=== PATIENT | female | born 1930 | race Caucasian/White ===

== ENCOUNTER → 2016-07-22 | Outpatient (CLI) | payer MEDICARE, OTHER ==
[2015-10-01 10:33] VITALS: BP 118/78
[~2016-07-22] MED LIST: ASPI81TA2 PO; BISA10SU2 RC; BUSP10TA PO; BUSP5TAB PO; CALC1TAB75 PO; CARB25DR OP; CLON0.5T PO; CLON0.5T20 PO; CLON1TAB3 PO; DOCU100T5 PO; DONE10TA34 PO; GLUC1CAP48 PO; GLYC1SUP23 RC; GUAI600T38 PO; HYDR12.58 PO; LEVO112T2 PO; LISI-334 PO; LISI40TA PO; LORA0.5T96 PO; LOVA10TA PO; MELA3TAB PO; MULT-121 PO; OXYB5TAB7 PO; POLY17PO5 PO; PRAM28CR2 TP; SERT50TA PO; TRAZ50TA15 PO; VERA180C2 PO; VERA240C2 PO
[2016-07-22 10:09] LABS: ALBUMIN 3.1 g/dL (3.4-5.0); ALBUMIN/GLOBULIN RATIO 0.9 (1.0-1.7); CALCIUM 8.8 mg/dL (8.5-10.1); CREATININE 1.2 mg/dL (0.6-1.0); GFR 42.6; POTASSIUM 4.1 mmol/L (3.5-5.1); TOTAL BILIRUBIN 0.6 mg/dL (0.2-1.0); TOTAL PROTEIN 6.6 g/dL (6.4-8.2)
== END | disposition home or self-care (01) ==
LOC: SPEC 09:38
PROVIDERS: ATTEND Family Medicine
DX: I10 Essential (primary) hypertension (principal); E87.0 Hyperosmolality and hypernatremia
CPT/HCPCS: 36415; 80053

== ENCOUNTER → 2016-09-18 | Outpatient (CLI) | payer MEDICARE, OTHER ==
[2015-10-01 10:33] VITALS: BP 118/78
[~2016-09-18] MED LIST changes: +ASPI-630 PO; -ASPI81TA2 PO; -DONE10TA34 PO; +DONE10TA61 PO; -GUAI600T38 PO; +GUAI600T47 PO; -MELA3TAB PO; +MELA3TAB2 PO
--- NOTE | 2016-09-18 14:57 | RAD ---
DATE: 09/18/2016 EXAM: DIGITAL SCREEN BILAT W/CAD HISTORY: Screening COMPARISON: One year earlier This study was interpreted with the benefit of Computerized Aided Detection (CAD). FINDINGS: Breast Density: SCATTERED The breast parenchyma shows scattered fibroglandular densities. Breast parenchyma level B. There has not been a significant change in the appearance of the breasts compared to the previous exam. Benign-appearing calcifications are noted in both breasts. IMPRESSION: Benign finding BI-RADS CATEGORY: 2 BENIGN FINDING(S) RECOMMENDED FOLLOW-UP: 12M 12 MONTH FOLLOW-UP PQRS compliance statement: Patient information was entered into a reminder system with a target due date 09/18/2017 for the next mammogram. Mammography is a sensitive method for finding small breast cancers, but it does not detect them all and is not a substitute for careful clinical examination. A negative mammogram does not negate a clinically suspicious finding and should not result in delay in biopsying a clinically suspicious abnormality. "Our facility is accredited by the [employer] Mammography Program."
== END | disposition home or self-care (01) ==
LOC: MAMMO 13:09
PROVIDERS: ATTEND Family Medicine
DX: Z12.31 Encounter for screening mammogram for malignant neoplasm of breast (principal)
CPT/HCPCS: G0202; 77067

== ENCOUNTER → 2016-10-22 | Outpatient (CLI) | payer MEDICARE, OTHER ==
[2015-10-01 10:33] VITALS: BP 118/78
[2016-10-22 11:00] LABS: ALBUMIN/GLOBULIN RATIO 0.9 (1.0-1.7); CALCIUM 8.5 mg/dL (8.5-10.1); CREATININE 1.1 mg/dL (0.6-1.0); POTASSIUM 4.1 mmol/L (3.5-5.1); TOTAL BILIRUBIN 0.3 mg/dL (0.2-1.0); TOTAL PROTEIN 6.3 g/dL (6.4-8.2)
== END | disposition home or self-care (01) ==
LOC: SPEC 10:27
PROVIDERS: ATTEND Family Medicine
DX: I10 Essential (primary) hypertension (principal); E87.0 Hyperosmolality and hypernatremia
CPT/HCPCS: 36415; 80053

== ENCOUNTER → 2016-11-23 | Outpatient (CLI) | payer MEDICARE, OTHER ==
[2015-10-01 10:33] VITALS: BP 118/78
== END | disposition home or self-care (01) ==
LOC: SPEC 14:55
PROVIDERS: ATTEND Family Medicine
DX: E03.9 Hypothyroidism, unspecified (principal)
CPT/HCPCS: 84443

== ENCOUNTER → 2016-11-25 | Outpatient (CLI) | payer MEDICARE, OTHER ==
[2015-10-01 10:33] VITALS: BP 118/78
== END | disposition home or self-care (01) ==
LOC: SPEC 07:44
PROVIDERS: ATTEND Family Medicine
DX: E78.00 Pure hypercholesterolemia, unspecified (principal)
CPT/HCPCS: 80061

== ENCOUNTER → 2016-12-29 | Outpatient (CLI) | payer MEDICARE, OTHER ==
[2015-10-01 10:33] VITALS: BP 118/78
[2016-12-29 12:26] LABS: ALBUMIN/GLOBULIN RATIO 0.9 (1.0-1.7); CALCIUM 8.7 mg/dL (8.5-10.1); CREATININE 1.6 mg/dL (0.6-1.0); GFR 30.5; POTASSIUM 4.2 mmol/L (3.5-5.1); TOTAL BILIRUBIN 0.4 mg/dL (0.2-1.0); TOTAL PROTEIN 6.3 g/dL (6.4-8.2)
[2016-12-29 12:29] LABS: BASO # 0.1 x10^3/uL (0.0-0.2); BASO % 1 % (0-3); EOS # 0.1 x10^3/uL (0.0-0.7); EOS % 1 % (0-3); HEMATOCRIT 40.4 % (36.0-47.0); HEMOGLOBIN 12.8 g/dL (12.0-15.5); LYMPH # 1.6 x10^3/uL (1.0-4.8); LYMPH % 17 % (24-48); MEAN CORPUSCULAR HEMOGLOBIN 30 pg (25-35); MEAN CORPUSCULAR HGB CONC 32 g/dL (31-37); MEAN CORPUSCULAR VOLUME 95 fL (79-100); MONO # 0.2 x10^3/uL (0.0-1.1); MONO % 2 % (0-9); NEUT # 7.4 x10^3uL (1.8-7.7); NEUT % 79 % (31-73); PLATELET COUNT 239 x10^3/uL (140-400); RED BLOOD COUNT 4.28 x10^6/uL (3.50-5.40); RED CELL DISTRIBUTION WIDTH 17.9 % (11.5-14.5); WHITE BLOOD COUNT 9.3 x10^3/uL (4.0-11.0)
[2016-12-29 12:33] LABS: BACTERIA,URINE 0 /HPF (0-FEW); BILIRUBIN,URINE NEG (NEG); CLARITY,URINE CLEAR; COLOR,URINE YELLOW; GLUCOSE,URINE NEG (NEG); NITRITE,URINE NEG (NEG); RBC,URINE 0 /HPF (0-2); UROBILINOGEN,URINE 0.2 mg/dL (0.2 mg/dL); WBC,URINE RARE /HPF (0-4)
== END | disposition home or self-care (01) ==
LOC: SPEC 11:42
PROVIDERS: ATTEND Family Medicine
DX: B99.8 Other infectious disease (principal); R79.89 Other specified abnormal findings of blood chemistry; E78.00 Pure hypercholesterolemia, unspecified
CPT/HCPCS: 36415; 80053; 81001; 85025

== ENCOUNTER 2016-12-30 00:29 | Emergency (ER) | payer MEDICARE, OTHER ==
[~2016-12-30] VITALS: Ht 154.9 cm; Wt 74.4 kg
[2016-12-30] MEDS ORDERED: PIPERACILLIN/TAZOBACTAM 3.375 GM VIAL IV ONE (00:57)
[2016-12-30] MEDS ORDERED: IV NORMAL SALINE 50ML 50 ML ONE (00:58)
[2016-12-30] MEDS ORDERED: PIPERACILLIN/TAZOBACTAM 3.375 GM in IV NORMAL SALINE 50ML 50 ML IV ONE (01:00)
[2016-12-30] MEDS ORDERED: IV NORMAL SALINE 1,000ML 1,000 ML IV SCH (01:00)
[2016-12-30 01:12] LABS: BASO # 0.1 x10^3/uL (0.0-0.2); BASO % 1 % (0-3); EOS % 0 % (0-3); HEMATOCRIT 38.9 % (36.0-47.0); HEMOGLOBIN 12.4 g/dL (12.0-15.5); LYMPH # 0.3 x10^3/uL (1.0-4.8); LYMPH % 2 % (24-48); MEAN CORPUSCULAR HEMOGLOBIN 30 pg (25-35); MEAN CORPUSCULAR HGB CONC 32 g/dL (31-37); MEAN CORPUSCULAR VOLUME 94 fL (79-100); MONO # 0.8 x10^3/uL (0.0-1.1); MONO % 5 % (0-9); NEUT # 14.5 x10^3uL (1.8-7.7); NEUT % 92 % (31-73); PLATELET COUNT 203 x10^3/uL (140-400); RED BLOOD COUNT 4.15 x10^6/uL (3.50-5.40); RED CELL DISTRIBUTION WIDTH 16.8 % (11.5-14.5); WHITE BLOOD COUNT 15.7 x10^3/uL (4.0-11.0)
--- NOTE | 2016-12-30 01:29 | PHYS DOC ---
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 History is from EMS, the patient is not able to contribute to the history. EMS state that the patient has been sick all day today. Evidently she was resistant to coming to be checked out. She had diarrhea , fever, and later in the day, decreased level of consciousness. At one point "they had to do a sternal rub on her". EMS also reports that patient had rectal bleeding today. On arrival, patient has her eyes closed but opens to voice, and in response to my questions, states "I'm fine". She denies pain. She denies any complaints. She is clearly altered with depressed level of consciousness. Paperwork that came with the patient does include a prehospital DNR. Also note on her paperwork that she has a pacemaker/defibrillator. Review of Systems Review of Systems Review of systems not able to be obtained due to patient's altered level of consciousness and critical condition Current Medications Current Medications Current Medications Medications (Trade) Dose Ordered Sig/Chapin Start Time Stop Time Status Last Admin Dose Admin Piperacillin Sod/ Tazobactam Sod (Zosyn) 3.375 gm STK-MED ONCE 12/30/16 00:57 12/30/16 00:58 DC Piperacillin Sod/ Tazobactam Sod 3.375 gm/Sodium Chloride 50 ml @ 100 mls/hr 1X ONCE 12/30/16 01:00 12/30/16 01:29 Sodium Chloride 50 ml @ As Directed STK-MED ONCE 12/30/16 00:58 12/30/16 00:59 DC Allergies Allergies Allergies Coded Allergies Type Severity Reaction Last Updated Verified No Known Drug Allergies 09/29/15 No Physical Exam Physical Exam Constitutional: Elderly female who has her eyes closed but opens to voice, answers with one or 2 word answers, pulse ox on 3 L is 97%, systolic blood pressure in the 110 range, not tachycardic. HENT: Normocephalic, atraumatic, bilateral external ears normal, oropharynx dry , nose normal. [] Eyes: conjunctiva normal, no discharge. [] Neck: no stridor. Cardiovascular:Heart rate regular rhythm, grade 2/6 systolic murmur Lungs & Thorax: Bilateral breath sounds clear to auscultation [] Abdomen: Distended, increased tympany throughout. Nontender to palpation. No rebound or guarding. No masses, no pulsatile mass. : There is an area of redness and skin injury on the posterior aspect of the vagina, noted during exam and straight catheter procedure. Nonspecific in appearance. Rectal: Digital rectal exam reveals watery stool that is pink in color and sent for fecal occult blood. Skin: Warm, dry, no erythema, no rash. Extremities: No tenderness, no cyanosis, no clubbing, ROM intact, no edema. [] Neurologic: Decreased level of consciousness, she has her eyes closed but does open them when spoken to. She does answer appropriately with 1 or 2 words, for example, "I'm fine", when I told her we were going to do a CT scan of her abdomen she answered "why?". Decreased muscle tone throughout but she does have symmetrical tone. Current Patient Data Vital Signs Vital Signs Date Time Temp Pulse Resp B/P (MAP) Pulse Ox O2 Delivery O2 Flow Rate FiO2 12/30/16 00:29 101.1 71 24 98 Nasal Cannula 3.0 Lab Results Laboratory Tests Test 12/30/16 00:45 White Blood Count 15.7 x10^3/uL (4.0-11.0) #H Red Blood Count 4.15 x10^6/uL (3.50-5.40) Hemoglobin 12.4 g/dL (12.0-15.5) Hematocrit 38.9 % (36.0-47.0) Mean Corpuscular Volume 94 fL (79-100) Mean Corpuscular Hemoglobin 30 pg (25-35) Mean Corpuscular Hemoglobin Concent 32 g/dL (31-37) Red Cell Distribution Width 16.8 % (11.5-14.5) H Platelet Count 203 x10^3/uL (140-400) Neutrophils (%) (Auto) 92 % (31-73) H Lymphocytes (%) (Auto) 2 % (24-48) L Monocytes (%) (Auto) 5 % (0-9) Eosinophils (%) (Auto) 0 % (0-3) Basophils (%) (Auto) 1 % (0-3) Neutrophils # (Auto) 14.5 x10^3uL (1.8-7.7) H Lymphocytes # (Auto) 0.3 x10^3/uL (1.0-4.8) L Monocytes # (Auto) 0.8 x10^3/uL (0.0-1.1) Eosinophils # (Auto) 0.0 x10^3/uL (0.0-0.7) Basophils # (Auto) 0.1 x10^3/uL (0.0-0.2) Platelet Estimate Pending EKG EKG [] Radiology/Procedures Radiology/Procedures CT scan of the abdomen and pelvis read by the radiologist. Dilated small bowel loops with a transition point in the left mid abdomen, without a focal abnormality. Prominent bowel wall thickening and adjacent soft tissue stranding involving the rectum, infectious, inflammatory, or malignant etiologies possible. One view portable chest x-ray read by me. Heart size enlarged but stable. Lung krishna are without infiltrate, no acute cardiopulmonary abnormality. [] Course & Med Decision Making Course & Med Decision Making Pertinent Labs and Imaging studies reviewed. (See chart for details) 86-year-old female presents with altered level of consciousness today, fever, report of diarrhea with bloody stools, she is found to have abdomen distended with increase in tympany. She was reported to be hypotensive, but I did review her chart and her blood pressure does appear to run low. Her abdomen exam is negative for guarding or rebound. She does have a small amount of bloody stool but she is not significantly anemic. She is not significantly anemic but her white count is elevated. Creatinine is elevated from her baseline. I believe she is dehydrated. Her troponin is slightly elevated but there is nothing to do about this other than supportive care at this time. Source of infection was not clearly identified. She does have a fever and leukocytosis however. Chest x-ray, urinalysis negative. Blood cultures were obtained and I started IV Zosyn. Patient has a pacemaker/defibrillator and on the monitor she appears to be fully paced with a wide-complex and heart rate of 70, therefore, EKG was not done. CT scan of the abdomen and pelvis read by the radiologist does show a small bowel obstruction with no mention of free air. There is no report of vomiting and the patient did not vomit in the emergency department, so I did not order an NG tube at this time. I talked to the patient, with her friend at the bedside. I am recommending that we transfer her to [facility]. I believe she may need to see a surgeon and GI specialist and also will need ICU care. Despite some initial resistance, the patient did agree to being transferred to [place]. The patient does appear more alert after she's had most of a liter of normal saline. For example, when I explained the situation to the patient and told her that I am advising transferred to [facility] she stated "I'd rather not", protesting that she "feels fine". Note that the patient did present with a prehospital DO NOT RESUSCITATE order. I discussed the case with Dr. Womack, hospitalist at [facility]. She will accept the patient for transfer. The patient will be transferred by EMS. Critical care time 45 minutes including bedside evaluation and reevaluation, evaluation of lab and radiology studies, discussion of the case with the patient and her friend, discussion of the case with the admitting physician, arranging transfer, documentation, reviewing old records. [] Dragon Disclaimer Dragon Disclaimer This chart was dictated in whole or in part using Voice Recognition software in a busy, high-work load, and often noisy Emergency Department environment. It may contain unintended and wholly unrecognized errors or omissions. Departure Departure: Impression: Primary Impression: Sepsis Additional Impressions: Small bowel obstruction Lower GI bleed Elevated serum creatinine Disposition: 02 XFER SHT-TRM HOSP Condition: GUARDED Referrals: MIC DELGADO MD (PCP) Problem Qualifiers EULALIO COELHO MD Dec 30, 2016 01:29
[2016-12-30 01:33] LABS: BACTERIA,URINE FEW /HPF (0-FEW); BILIRUBIN,URINE NEG (NEG); CLARITY,URINE HAZY; COLOR,URINE YELLOW; GLUCOSE,URINE NEG (NEG); NITRITE,URINE POS (NEG); RBC,URINE 0 /HPF (0-2); SQUAMOUS EPITHELIAL CELL,UR FEW /LPF; UROBILINOGEN,URINE 0.2 mg/dL (0.2 mg/dL)
[2016-12-30 01:34] LABS: FECAL OB PT POSITIVE (NEG)
[2016-12-30 01:39] LABS: ALBUMIN 2.7 g/dL (3.4-5.0); ALBUMIN/GLOBULIN RATIO 0.7 (1.0-1.7); CALCIUM 8.3 mg/dL (8.5-10.1); GFR 23.6; TOTAL BILIRUBIN 0.5 mg/dL (0.2-1.0); TOTAL PROTEIN 6.8 g/dL (6.4-8.2)
[2016-12-30 01:42] LABS: POTASSIUM 5.2 mmol/L (3.5-5.1)
--- NOTE | 2016-12-30 01:50 | RAD ---
EXAM: Abdomen and pelvis CT without intravenous contrast. HISTORY: Fever, bloating, rectal bleeding, hypotensive. TECHNIQUE: Computed tomographic images of the abdomen and pelvis were obtained without contrast. Multiplanar reformatting was performed. PQRS compliance statement: One or more of the following individualized dose reduction techniques were utilized for this examination: 1. Automated exposure control 2. Adjustment of the mA and/or kV according to patient size 3. Use of iterative reconstruction technique COMPARISON: February 22, 2013. FINDINGS: The lung bases demonstrate mild opacity in the left lung base, likely atelectasis. Cardiomegaly is redemonstrated. Detailed evaluation of the intra-abdominal and pelvic organs and vascular structures is limited secondary to lack of IV contrast. There is some motion artifact present within the upper abdomen. Within these limitations, the liver, spleen, pancreas, adrenal glands and right kidney demonstrate no focal abnormality. The gallbladder is surgically absent. 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 Dilated small bowel loops are present involving the jejunum. A transition point is seen within the mid left abdomen, without a focal abnormality seen. There is prominent bowel wall thickening and adjacent soft tissue stranding involving the rectum. Multiple colonic diverticula are seen involving the sigmoid colon. A well-defined, ovoid, 1.5 cm calcification is present along the posterior wall of the urinary bladder, suggestive of a calculus. Tiny focus of air is seen anteriorly within the urinary bladder. No intra-abdominal or pelvic free fluid, free air or significant lymphadenopathy is seen. Aorta is normal in caliber, with atherosclerotic calcification present. Overlying soft tissues and visualized osseous structures demonstrate no acute or suspicious interval change. IMPRESSION: 1. Dilated proximal small bowel loops consistent with small bowel obstruction, with transition point present in the left abdomen. 2. Prominent rectal wall thickening with adjacent soft tissue stranding, considerations include infectious, inflammatory and malignant etiologies. 3. Tiny focus of air within the anterior urinary bladder, correlate with recent catheterization. 4. Other incidental findings are stable from previous exam. Electronically signed by: Sunita Beck MD (12/30/2016 1:47 AM) [id number]
[2016-12-30 02:47] VITALS: BP 95/57
[2016-12-30 03:05] LABS: % BANDS 15 % (0-9); % LYMPHS 2 % (24-48); % MONOS 5 % (0-10); % SEGS 78 % (35-66)
[2016-12-30 03:47] LABS: PLT ESTIMATE ADEQUATE (ADEQUATE)
--- NOTE | 2016-12-30 07:18 | RAD ---
Portable chest, 12/30/2016: History: Fever Comparison is made to a study from 09/29/2015. A left-sided transvenous pacemaker remains in place with 2 leads extending in the right heart. The heart is mildly enlarged. There is calcific plaquing of the aorta. The patient is rotated to the left. The pulmonary vascularity is prominent. No pulmonary consolidation is seen. There is no evidence of pleural fluid. The bony structures are demineralized. IMPRESSION: Cardiomegaly with borderline vascular congestion.
== END 2016-12-30 03:11 | disposition short-term general hospital (02) ==
LOC: ER 00:29
DX: A41.9 Sepsis, unspecified organism (principal); K56.69 Other intestinal obstruction; K92.2 Gastrointestinal hemorrhage, unspecified; R79.89 Other specified abnormal findings of blood chemistry; E78.00 Pure hypercholesterolemia, unspecified; I11.9 Hypertensive heart disease without heart failure; F03.90 Unspecified dementia, unspecified severity, without behavioral disturbance, psychotic disturbance, mood disturbance, and anxiety; I49.9 Cardiac arrhythmia, unspecified; Z86.73 Personal history of transient ischemic attack (TIA), and cerebral infarction without residual deficits; Z95.0 Presence of cardiac pacemaker
CPT/HCPCS: 36415; 51701; 71010; 74176; 80053; 81001; 82274; 82553; 83605; 83690; 84484; 85007; 85025; 85610; 85730; 86850; 86900; 86901; 87040; 87086; 96365; 99291; J2543; J7030

== ENCOUNTER → 2017-01-05 | Outpatient (CLI) | payer MEDICARE, OTHER ==
[2016-12-30 02:47] VITALS: BP 95/57
== END | disposition home or self-care (01) ==
LOC: SPEC 12:14
PROVIDERS: ATTEND Family Medicine
DX: R19.7 Diarrhea, unspecified (principal)
CPT/HCPCS: 36415; 87324

== ENCOUNTER → 2017-01-12 | Outpatient (CLI) | payer MEDICARE, OTHER ==
[2016-12-30 02:47] VITALS: BP 95/57
== END | disposition home or self-care (01) ==
LOC: SPEC 10:32
PROVIDERS: ATTEND Family Medicine
DX: D64.9 Anemia, unspecified (principal)
CPT/HCPCS: 36415; 85018